=== PATIENT | male | born 2000 | race Two or more races ===

== ENCOUNTER 2025-03-24 14:24 | Emergency (ER) | payer OTHER ==
[~2025-03-24] VITALS: Ht 167.6 cm; Wt 75.2 kg
--- NOTE | 2025-03-24 15:46 | DVH ---
CLINICAL INFORMATION: Headache. TECHNIQUE: Axial imaging was obtained through the brain without contrast. Coronal and sagittal reform atted images were obtained, reviewed, and stored. Images were reviewed in brain and bone windows. Al l CT scans at this medical facility are performed using dose modulation techniques as appropriate to a performed exam including the following: Automated exposure control was utilized; adjustment of the MA and/or KV according to patient size; and use of iterative reconstruction technique. CTDIvol = 59.5 3 mGy DLP = 1054.06 mGy-cm COMPARISON: None FINDINGS: There is no acute intracranial hemorrhage. No mass effect or midline shift. The ventricles and sulci are within normal limits in size for age. Basal cisterns are patent. The calvarium is unre markable. Mucosal thickening of the paranasal sinuses with retention cysts versus polyps in the maxil dajuan sinuses bilaterally and in the right side of the sphenoid sinus. The largest retention cyst vers us polyp is in the left maxillary sinus, measuring up to 3.4 cm. Mastoid air cells appear clear. IMPRESSION: 1. No CT evidence of acute intracranial abnormality. 2. Paranasal sinus disease as described above.
--- NOTE | 2025-03-24 15:47 | ED.PDOC ---
HPI (NEURO) HPI Comments A 24 year old male presents to the ED with a chief complaint of headache onset 2 weeks. Patient states he experienced a headache 2 weeks ago, located occipital region. lasted a few days, resolved on its own. This morning around 02:00, patient felt liquid leaking from nose, checked and noticed yellow discharge. Amount was mild and went back to bed. Patient woke up around 07:00, noticed there was an increased amount of yellow liquid from nose. Called [facility] telehealth nurse and was advised to come to ED. Currently patient has no complaints, no discharge or headache. Denies fever, chills, night sweats Denies persistent nausea Denies vomiting Denies headache Denies photophobia, phonophobia Denies head trauma around the time headache started Denies family history of brain issues persistent headaches Denies taking any blood thinner medication Denies vision/hearing changes Denies focal loss of strength/sensation or changes in speech Denies neck stiffness Chief Complaint: Headache Time Seen by MD: 15:15 Primary Care Provider: BRIAN Reviewed Notes: Medications, Allergies Information Source: Patient Mode of Arrival: Ambulatory Severity: Moderate Headache Severity: Moderate Timing: Weeks Duration: Since onset Prehospital treatment: None Headache Location: Occipital Associated Signs and Symptoms: Headache, Other (nasal drip) Past Medical History PAST MEDICAL HISTORY: Denies Surgical History: Denies all surgeries Family History Family History: Unknown Social History Smoker: Non-Smoker Alcohol: Denies ETOH Use Drugs: Denies Drug Use Lives In: Home All Other Systems: Reviewed and Negative (as per HPI) Physical Exam General Appearance: No Apparent Distress, Normal HEENT: Head (The head is normocephalic and atraumatic. There were no abrasions lacerations hematomas open wounds or tenderness to palpation), Normal ENT Inspection, PERRL/EOMI, Pharynx Normal, TMs Normal, Other (Bilateral nares are patent. No septal hematoma or obstruction noted. No signs of rhinorrhea) Neck: Full Range of Motion, Non-Tender, Normal, Normal Inspection Respiratory: Chest Non-Tender, Lungs Clear, No Accessory Muscle Use, No Respiratory Distress, Normal Breath Sounds Cardiovascular: No Edema, No JVD, No Murmur, No Gallop, Normal Peripheral Pulses, Regular Rate/Rhythm Breast Exam: Deferred Gastrointestinal: No Organomegaly, Non Tender, No Pulsatile Mass, Normal Bowel Sounds, Soft Genitalia: Deferred Pelvic: Deferred Rectal: Deferred Extremities: No calf tenderness, Normal capillary refill, Normal inspection, N ormal range of motion, Non-tender, No pedal edema Musculoskeletal : Apperance: Normal Neurologic: Alert, pelt inspector II-XII nml as Tested, No Motor Deficits, Normal Affect, Normal Mood, No Sensory Deficits Cerebellar Function: Normal Reflexes: Normal Skin: Dry, Normal Color, Warm Lymphatic: No Adenopathy Was a procedure done? Was a procedure done?: No Differential Diagnosis (SZ) Headache: Migraine, Closed Head Injury, Meningitis, Sinusitis X-Ray, Labs, Meds, VS Vital Signs Date Time Temp Pulse Resp B/P (MAP) Pulse Ox O2 Delivery O2 Flow Rate FiO2 03/24/25 16:30 86 16 98 Room Air 03/24/25 16:30 98.2 68 16 124/83 (97) 98 98.2 03/24/25 14:36 98.3 91 18 160/69 (99) 96 98.3 Lab Test 03/24/25 15:36 Range/Units White Blood Count 5.0 4.4-10.8 10^3/uL Red Blood Count 5.78 4.5-5.90 10^6/uL Hemoglobin 16.6 13.5-17.5 g/dL Hematocrit 49.8 41.0-53.0 % Mean Corpuscular Volume 86.2 80.0-100.0 fL Mean Corpuscular Hemoglobin 28.7 28.0-32.0 pg Mean Corpuscular Hemoglobin Concent 33.3 32.0-36.0 g/dL Red Cell Distribution Width 14.5 H 11.8-14.3 % Platelet Count 271 140-450 10^3/uL Mean Platelet Volume 8.7 6.9-10.8 fL Neutrophils (%) (Auto) 51.7 37.0-80.0 % Lymphocytes (%) (Auto) 41.1 10.0-50.0 % Monocytes (%) (Auto) 5.8 0.0-12.0 % Eosinophils (%) (Auto) 0.7 0.0-7.0 % Basophils (%) (Auto) 0.7 0.0-2.0 % Neutrophils # (Auto) 2.6 1.6-8.6 10 ^3/uL Lymphocytes # (Auto) 2.0 0.4-5.4 10 ^3/uL Monocytes # (Auto) 0.3 0-1.3 10 ^3/uL Eosinophils # (Auto) 0 0-0.8 10 ^3/uL Basophils # (Auto) 0 0-0.2 10 ^3/uL Nucleated Red Blood Cells 0.3 % Sodium Level 141 136-145 mmol/L Potassium Level 3.7 3.5-5.1 mmol/L Chloride Level 106 98-107 mmol/L Carbon Dioxide Level 27 20-31 mmol/L Anion Gap 8 5-15 Blood Urea Nitrogen 12 9-23 mg/dL Creatinine 0.88 0.700-1.30 mg/dL Glomerular Filtration Rate Calc 125 >90 mL/min BUN/Creatinine Ratio 13.6 10.0-20.0 Serum Glucose 98 74-106 mg/dL Calcium Level 10.1 8.7-10.4 mg/dL PATIENT: JULIA NATHAN ACCT: [id number] UNIT: [id number] : 2000 LOC: ER ROOM / BED: / AGE / SEX: 24 / M ADM STATUS: REG ER SERVICE [id number] ORDERING PHYSICIAN: PRASHANT STEWART NP PROCEDURE(s): HWOCT - HEAD WITHOUT CONTRAST REASON: OGDEN. ORDER NUMBER(s): [id number], ACCESSION NUMBER(s): [id number] CLINICAL INFORMATION: Headache. TECHNIQUE: Axial imaging was obtained through the brain without contrast. Coronal and sagittal reformatted images were obtained, reviewed, and stored. Images were reviewed in brain and bone windows. All CT scans at this medical facility are performed using dose modulation techniques as appropriate to a performed exam including the following: Automated exposure control was utilized; adjustment of the MA and/or KV according to patient size; and use of iterative reconstruction technique. CTDIvol = 59.53 mGy DLP = 1054.06 mGy-cm COMPARISON: None FINDINGS: There is no acute intracranial hemorrhage. No mass effect or midline shift. The ventricles and sulci are within normal limits in size for age. Basal cisterns are patent. The calvarium is unremarkable. Mucosal thickening of the paranasal sinuses with retention cysts versus polyps in the maxillary sinuses bilaterally and in the right side of the sphenoid sinus. The largest retention cyst versus polyp is in the left maxillary sinus, measuring up to 3.4 cm. Mastoid air cells appear clear. IMPRESSION: 1. No CT evidence of acute intracranial abnormality. 2. Paranasal sinus disease as described above. ATED BY: BEAR DON DO DICTATED DATE/TIME: 03/24/25 1543 X-Ray, Labs, Meds, VS Comment A 24 year old male presents to the ED with a chief complaint of headache onset 2 weeks. Patient arrives alert and oriented, ABC's intact, afebrile, vital signs stable, saturating well in room air After ROS and physical examination, differentials considered but not limited to: Tension headache, sinusitis, migraine, URI symptoms Labs were ordered and reviewed. Imaging showed: Mucosal thickening of the paranasal sinuses with retention cysts versus polyps in the maxillary sinuses bilaterally and in the right side of the sphenoid sinus. The largest retention cyst versus polyp is in the left maxillary sinus, measuring up to 3.4 cm. Mastoid air cells appear clear. The diagnostic findings were discussed with the patient in detail. Based on show decision-making patient agreed to empiric treatment. Prescribed p.o. antibiotics for presentation of symptoms Complete course of antibiotic therapy even if symptoms improve or resolve. There should be no leftover antibiotics as this can lead to antibiotic resistant bacteria and even worse infection. Patient verbalized understanding. Potential side effects discussed with patient including abdominal pain, nausea, diarrhea. Patient is stable for discharge at this time. External notes reviewed. Test results and diagnostic imaging interpreted. Follow-up with PCP in 2 to 3 days Patient verbalized understanding and agreed to treatment plan Vital signs stable, afebrile, no acute distress noted Patient ambulatory with strong steady gait Advised to return precautions for any new or worsening symptoms, return to ER immediately for re-evaluation Patient is aware that the purpose of this visit was for an acute medical emergency requiring emergent stabilization. Chronic conditions, including malignancies have not been ruled out. Patient is instructed to follow up with PCP as directed and discharge instructions for continued care and workup. If unable to arrange follow-up, patient is to return to the emergency department for reassessment. Patient (parent or legal guardian if applicable) was given verbal and written discharge instructions and acknowledges understanding. Additional MDM Review of External, Non-ED records: External records reviewed. Discussion with independent historian (EMS, family) history obtained from the patient at bedside Chronic conditions affecting care: none Social determinants of health affecting care: none Consideration of admission (observation or admission): I considered escalation of care to admission for this patient, however given the reassuring workup, the patient is safe for outpatient management. Time of 1ST Reevaluation: 15:45 Reevaluation 1ST: Improved Patient Education/Counseling: Diagnosis, Treatment, Prognosis Family Education/Counseling: No Family Present Departure 1 Departure Time of Disposition: 16:22 Impression: Primary Impression: Paranasal sinus disease Additional Impression: Maxillary polyp of sinus Disposition: 01 HOME / SELF CARE / HOMELESS Condition: Fair e-Prescriptions Cetirizine Hcl (Cetirizine Hcl) 5 Mg Tab 10 MG PO DAILY for 10 Days, #20 TAB 0 Refills Prov: PRASHANT STEWART NP 03/24/25 Amoxicillin & Pot Clavulanate (AUGMENTIN TABLET) 875 Mg Tb 875 MG PO BID for 7 Days, #14 TAB 0 Refills Prov: PRASHANT STEWART NP 03/24/25 Discharged With: Self Critical Care Note Critical Care Time?: No Stability Stability form required: No Heart Score Heart Score: Heart Score Response (Comments) Value History N/A 0 EKG N/A 0 Age N/A 0 Risk Factors N/A 0 Troponin N/A 0 Total 0 I personally scribed for PRASHANT STEWART [employer] WORK[employer] ([email or web address]) on 03/24/25 at 15:47. Electronically submitted by Claudia Ford ([email or web address]). I personally scribed for PRASHANT STEWART [employer] WORKER ([email or web address]) on 03/24/25 at 16:16. Electronically submitted by Claudia Ford ([email or web address]). I personally scribed for PRASHANT STEWART [employer] WORKER ([email or web address]) on 03/24/25 at 16:17. Electronically submitted by Claudia Ford ([email or web address]). PRASHANT STEWART NP March 24, 2025 15:47
[2025-03-24 15:55] LABS: Basophils # (auto) 0 10 ^3/uL (0-0.2); Basophils % (auto) 0.7 % (0.0-2.0); Eosinophils # (auto) 0 10 ^3/uL (0-0.8); Eosinophils % (auto) 0.7 % (0.0-7.0); Hematocrit 49.8 % (41.0-53.0); Hemoglobin 16.6 g/dL (13.5-17.5); Lymphocytes % (auto) 41.1 % (10.0-50.0); Mean Corpuscular Hemoglobin 28.7 pg (28.0-32.0); Mean Corpuscular Hgb Conc. 33.3 g/dL (32.0-36.0); Mean Corpuscular Volume 86.2 fL (80.0-100.0); Monocytes # (auto) 0.3 10 ^3/uL (0-1.3); Monocytes % (auto) 5.8 % (0.0-12.0); Neutrophils # (auto) 2.6 10 ^3/uL (1.6-8.6); Neutrophils % (auto) 51.7 % (37.0-80.0); Nucleated Red Blood Cells % 0.3 %; Platelet Count (auto) 271 10^3/uL (140-450); Red Blood Cells 5.78 10^6/uL (4.5-5.90); Red Cell Distribution Width 14.5 % (11.8-14.3)
[2025-03-24 16:00] LABS: Chloride 106 mmol/L (98-107); Potassium 3.7 mmol/L (3.5-5.1); Sodium 141 mmol/L (136-145)
[2025-03-24 16:01] LABS: Anion Gap 8 (5-15); Calcium 10.1 mg/dL (8.7-10.4); Carbon Dioxide 27 mmol/L (20-31)
[2025-03-24 16:06] LABS: BUN/Creatinine Ratio 13.6 (10.0-20.0); Blood Urea Nitrogen 12 mg/dL (9-23); Glucose 98 mg/dL (74-106)
[2025-03-24] MEDS ORDERED: CETI5TAB6 PO (16:22)
[2025-03-24] MEDS ORDERED: AUG875T PO (16:22)
[2025-03-24 16:30] VITALS: BP 124/83; PULSE 86; RESP 16; TEMP 98.2; O2SAT 98
== END 2025-03-24 16:32 | disposition home or self-care (01) ==
LOC: ER 14:27
DX: J33.8 Other polyp of sinus (principal)
CPT/HCPCS: 36415; 70450; 80048; 85025